=== PATIENT | female | born 1970 | race Hispanic/Latino ===

== ENCOUNTER 2024-12-14 06:36 | Emergency (ER) | payer OTHER ==
[2024-12-14] MEDS ORDERED: DOPAMINE/D5W 400 MG/250 ML BAG IV ONE (06:37)
[2024-12-14] MEDS ORDERED: EPINEPHrine 1 MG/10 ML SYR IV ONE (06:37)
[2024-12-14] MEDS ORDERED: LIDOCAINE 100 MG/5 ML SYRINGE IV ONE (06:37)
--- NOTE | 2024-12-14 06:58 | ER ---
Nurse's Notes [facility] Name: Tamika Cooney Age: 54 yrs Sex: Female : 1970 Arrival Date: 12/14/2024 Time: 06:36 Bed 2 Private MD: Diagnosis: Cardiac arrest, cause unspecified Presentation: 12/14 06:36 Chief complaint: EMS states: Police were called out to home, PT became unresponsive and bm8 CPR was started by police, We arrived and took over at 0545. Care prior to arrival: Assisted ventilation, Oral intubation, CPR manually via thumper performed by EMS was defibrillated and is still in progress Medication(s) given: Normal saline infusion, 1000 mL, 3 Round of epinephrine, 300 mg amiodarone IV initiated. IO in left femur Glucose check: 300 Oxygen administered. 06:36 Compressions began at 05:40. bm8 06:51 Method Of Arrival: EMS: [facility] bm8 06:51 Acuity: ISADORA 1 bm8 Historical: - Allergies: 07:08 No Known Allergies; bm8 - Home Meds: 07:08 Lasix 20 mg Oral tablet 1 tab daily [Active]; spironolactone 25 mg Oral tablet 25 mg 2 bm8 times per day [Active]; Farxiga 10 mg oral tablet 1 tab daily [Active]; - PMHx: 07:08 End stage renal disease; Diabetes mellitus; Congestive heart failure; bm8 - PSHx: 07:08 Unable to Obtain; bm8 - Code Status:: Full code. Screenin:08 Abuse screen: Denies threats or abuse. Nutritional screening: No deficits noted. bm8 Tuberculosis screening: No symptoms or risk factors identified. Assessment: 06:36 CPR assessment: unresponsive, pupils fixed \T\ dilated, no respiratory effort, intubated, bm8 mechanical ventilation, cyanotic, pale, pulses present w/ compressions. Cardiac rhythm is PEA. General:. Neuro: Level of Consciousness is unresponsive. EENT: No deficits noted. No signs and/or symptoms were reported regarding the EENT system. Cardiovascular: Capillary refill is > 3 seconds is sluggish in bilateral fingers toes Rhythm is PEA. Respiratory: Airway is patent via oral intubation. GI: No deficits noted. : No deficits noted. Derm: No deficits noted. Musculoskeletal: No deficits noted. 07:12 General: 0636- pt arrived with [facility], Cole machine attached to pt, ETT in bm8 place 7.5 tube, 24 cm at teeth. left femur IO infusing NS at bolus rate. 0640- Pulse check, 1 epinephrine given, NO pulse, PEA, continued CPR 0642- pulse check, no pulse, PEA, CPR continued. 0643- 1 epinephrine given 0645- pulse check, no pulse, PEA, 0646- Dr. Pacheco called Time of . 07:23 General: [facility] called , spoke with Yojana Crespo. bm8 Vital Signs: 06:36 BP 0 / 0; Pulse 0; Resp 0; Pain 0/10; bm8 06:36 Pain Scale: Adult bm8 [place] Coma Score: 06:36 Eye Response: none(1). Modifying Factors: Intubated. Motor Response: none(1). Verbal bm8 Response: none(1). Total: 3. ED Course: 06:47 Patient arrived in ED. ms3 06:48 Joon Pacheco DO is Attending Physician. ms3 06:50 Bruce Almaraz, NATTY is Primary Nurse. bm8 06:56 Triage completed. bm8 06:57 Joon Pacheco DO is Pronouncing Provider. ms3 07:08 Patient has correct armband on for positive identification. Bed in low position. Side bm8 rails up X2. Intubation:. 08:17 Primary Nurse role handed off by Bruce Almaraz RN ll1 Administered Medications: 06:40 Drug: EPINEPHrine 1:10,000 IVP 1:10,000 1 mg IVP once Route: IVP; Site: Other; bm8 07:10 Follow up: Response: No adverse reaction bm8 06:43 Drug: EPINEPHrine 1:10,000 IVP 1:10,000 1 mg IVP once Route: IVP; Site: Other; bm8 07:10 Follow up: Response: No adverse reaction bm8 Outcome: 06:46 Outcome Patient bm8 06:46 Patient : Time of 06:46 Pronounced by Joon Pacheco DO 06:46 Condition: 12:25 Patient left the ED. ph Signatures: Aditi Nieves RN RN Goran Avalos RN RN ll1 Joon Pacheco DO DO ms3 Almaraz, Bruce, RN RN bm8 Corrections: (The following items were deleted from the chart) 07:10 07:08 PSHx: None; bm8 bm8
--- NOTE | 2024-12-14 06:58 | EDPHYS ---
Physician Documentation [facility] Name: Tamika Cooney Age: 54 yrs Sex: Female : 1970 Arrival Date: 12/14/2024 Time: 06:36 Bed 2 Private MD: ED Physician Joon Pacheco HPI: 12/14 06:50 This 54 yrs old Female presents to ER via Unassigned with complaints of CPR. ms3 06:50 Pre-hospital course: Bystanders at the scene performed CPR. ACLS details: Initial ms3 rhythm was V-fib. The presenting rhythm is PEA. Airway: oral intubation, Medications given by EMS prior to arrival - Epinephrine IV x 3 doses, Amiodarone 300 mg IV push given, Defibrillated X 1. 54-year-old female with unknown past medical history presents to the emergency department via [facility] for cardiac arrest. EMS states they were called for female with a faint pulse on the [employer] arrival patient was laying on the bed and lost her pulse. On EMS arrival patient was in V-fib and was defibrillated x 1. EMS states they did obtain ROSC x 1 that quickly diminished. Patient has been given a total of 3 epinephrine and 300 mg of amiodarone. Patient was intubated with a 7.5 endotracheal tube. EMS states CPR was started at 0545. Historical: - Allergies: 07:08 No Known Allergies; bm8 - Home Meds: 07:08 Lasix 20 mg Oral tablet 1 tab daily [Active]; spironolactone 25 mg Oral tablet 25 mg 2 bm8 times per day [Active]; Farxiga 10 mg oral tablet 1 tab daily [Active]; - PMHx: 07:08 End stage renal disease; Diabetes mellitus; Congestive heart failure; bm8 - PSHx: 07:08 Unable to Obtain; bm8 - Code Status:: Full code. ROS: 06:50 Unable to obtain ROS due to Cardiac arrest, ms3 Exam: 06:50 Head/Face: Normocephalic, atraumatic. ms3 06:50 Eyes: Pupils: are fixed and dilated, Lids and lashes: appear normal, 06:50 Cardiovascular: No heart sounds auscultated, no pulses palpated, 06:50 Respiratory: Intubated with 7.5 ETT, 06:50 Abdomen/GI: Inspection: distension, that is moderate, Palpation: soft, 06:50 Skin: Appearance: Color: cyanotic, Temperature: cool, Moisture: dry, petechiae, not ms3 noted, ecchymosis, not noted, Vital Signs: 06:36 BP 0 / 0; Pulse 0; Resp 0; Pain 0/10; bm8 06:36 Pain Scale: Adult bm8 [place] Coma Score: 06:36 Eye Response: none(1). Modifying Factors: Intubated. Motor Response: none(1). Verbal bm8 Response: none(1). Total: 3. MDM: 06:47 Medical Screening Exam initiated ms3 06:50 Differential diagnosis: arrythmia, cardiac arrest, respiratory arrest. Data reviewed: ms3 vital signs, nurses notes. Independent interpretation of the following test(s) in the Emergency Department air sampling and monitoring: rate is 24 beats/min, Rhythm is pulseless electrical activity, with no ectopy, Interpretation: PEA with rate of 24. ED course: CPR continued on patient's arrival to the emergency department. 2 rounds of epinephrine were given without return of spontaneous circulation. Time of 0646. 07:36 ED course: Discussed patient's with her brother Jimmy in the Emergency ms3 Department. . Administered Medications: 06:40 Drug: EPINEPHrine 1:10,000 IVP 1:10,000 1 mg IVP once Route: IVP; Site: Other; bm8 07:10 Follow up: Response: No adverse reaction bm8 06:43 Drug: EPINEPHrine 1:10,000 IVP 1:10,000 1 mg IVP once Route: IVP; Site: Other; bm8 07:10 Follow up: Response: No adverse reaction bm8 Disposition: 06:56 . ms3 Disposition Summary: 12/14/24 06:57 Patient Notes: Location: [facility] ms3 Pronouncing Physician: Joon Pacheco msBenjie Time of : 06:46 12/14/2024 ms3 Diagnosis - Cardiac arrest, cause unspecified ms3 Signatures: Joon Pacheco, DO ms3 Bruce Almaraz RN RN bm8 Corrections: (The following items were deleted from the chart) 06:53 06:50 54-year-old female with unknown past medical history presents to the emergency id3 department via [facility] for cardiac arrest. EMS states they were called for female with a faint pulse on the [employer] arrival patient was laying on the bed and lost her pulse. On EMS arrival patient was in V-fib and was defibrillated x 1. EMS states they did obtain ROSC x 1 that quickly diminished. Patient has been given a total of 3 epinephrine and 300 mg of amiodarone. Patient was intubated with a 7.5 endotracheal tube. EMS states call was at 545. ms3 07:10 07:08 PSHx: None; bm8 bm8
[2024-12-14 12:30] VITALS: BP 0/0
== END 2024-12-14 12:25 ==
LOC: ER 06:36
DX: I46.9 Cardiac arrest, cause unspecified (principal); E11.22 Type 2 diabetes mellitus with diabetic chronic kidney disease; N18.6 End stage renal disease
CPT/HCPCS: 31500; 96374; 92950 ×2; 99285; J0169; J1265